=== PATIENT | female | born 1965 | race Caucasian/White ===

== ENCOUNTER 2018-10-20 06:52 | Day surgery (SDC) | payer OTHER ==
[2018-10-18 17:20] VITALS: Ht 167.6 cm; Wt 63.0 kg
[2018-10-20] VITALS (15 sets, daily range): BP systolic 98–166; BP diastolic 59–95; PULSE 64–90; RESP 11–31
[~2018-10-20] VITALS: Ht 167.6 cm; Wt 63.0 kg
--- NOTE | 2018-10-20 06:06 | HPN ---
Date/Time of Note Date/Time of Note DATE: 10/20/18 TIME: 06:06 Interval H&P Admission Note Pt. seen H&P reviewed: No system changes BERTHA EVANS MD Oct 20, 2018 06:06
--- NOTE | 2018-10-20 06:09 | OPR ---
Date/Time of Note Date/Time of Note DATE: 10/20/18 TIME: 06:06 Operative Report Procedure Date: Oct 20, 2018 Preoperative Diagnosis Right shoulder rotator cuff tear with impingement Postoperative Diagnosis 1. Right shoulder rotator cuff tear 2. Right shoulder acromioclavicular joint arthritis 3. Right shoulder impingement 4. Right shoulder labral tear with biceps tendon tear Operation/Procedure Performed 1. Right shoulder arthroscopic rotator cuff repair 2. Right shoulder arthroscopic distal clavicular excision 3. Right shoulder arthroscopic acromioplasty 4. Right shoulder arthroscopic extensive debridement of glenohumeral joint with release of biceps tendon Surgeon see signature line Controlled Area Checker Desean Samaniego PA-C Anesthesia Type: general Estimated Blood Loss: minimal Transfusion none Specimen None Grafts/Implants See op note Complications none Pt Condition Post Procedure: stable Disposition: PACU Procedure Description BRUSH MACHINE SETTER SURGEON: Desean Samaniego PA-C was asked to be present at my request as a result of the complexity associated with this procedure including positioning of the extremities, manipulation of the arthroscope and assistance with suture management and implantation of suture anchors. In my opinion, the assistance offered by a assistant professor surgical technology is insufficient and Mr. Samaniego should be compensated for his time. PROCEDURE IN DETAIL: Following the administration of general anesthesia supplemented with a peripheral nerve block for postoperative pain control, the patient was examined under anesthesia. Examination of the right shoulder revealed very significant stiffness. Specifically, her forward flexion was 90 degrees, abduction 80 degrees external rotation 45 degrees and internal rotation 10 degrees. A passive manipulation was then undertaken very carefully. The ultimate range of motion was approximately 140 degrees of forward flexion 110 de grees of abduction 80 degrees and internal rotation of 20 degrees. See letter several significant adhesions were noted to be released. The patient was then placed in the left lateral decubitus position. Sterile prep and drape was then undertaken of the right shoulder. Anterior and posterior glenohumeral portals were established. Glenohumeral arthroscopy revealed that the humeral and glenoid articular cartilage revealed some diffuse grade 2 changes and in the central portion of the humerus there was some mild grade 2 changes also in a diffuse fashion. There was some mild softening in a generalized fashion.. The superior labrum was diffusely torn with extensive fraying that extended from 9:00 to the 3 o'clock position. The biceps had severe synovitis with subluxation and significant fraying. In addition, the biceps anchor was detached completely. The subscapularis was visualized and it had a solid attachment. No abnormalities are noted anteriorly with the exception of the very severe synovitis which was actually in the notch itself. Further evaluation of the supraspinatus revealed complete tear of the supraspinatus measuring 1 x 2 cm. Some significant frayed tissue was also noted. Infraspinatus was normal. The superior labrum then debrided extensively from the 9:00 to the 3 o'clock position was undertaken down to stable tissue. Severe synovitis was also debrided down to stable tissue. The biceps tendon was also released and seen to retract. The severe synovitis in the anterior compartment was then debrided. The subacromial space was then entered and very severe bursal reactive tissue was noted. There was a thickened coracoacromial ligament, with a 5 to 7 mm acromial prominence noted, which extended medially as well into the acromioclavicular joint. The anterior acromion was then cleared of soft tissue and the coracoacromial ligament released. The acromion was then resected approximately 5 to 7 mm down to a flat surface. The outer surface of the rotator cuff was then inspected. The rotator cuff tear was noted to be complete and a debridement of this area was undertaken down to stable tissue in order to prepare for the repair. The subacromial space was then further evaluated medially. The acromioclavicular joint was then skeletonized and a significant inferior osteophyte was noted. The AC joint capsule was then opened and the distal clavicle was skeletonized for a distance of 10 mm. The marlon was then inserted and 10 mm of the distal clavicle were then excised. The rotator cuff repair was then undertaken. Specifically, a 5 mm, triple loaded titanium anchor was then inserted into the tuberosity. The sutures were then passed in a mattress fashion and tied using sliding, locking knots. A solid repair of the rotator cuff was completed. The joint was then thoroughly irrigated bony debris removed, the deep tissues were approximated using 4-0 Monocryl, followed by a sterile dressing. A sling was then applied. The patient was awakened and transported to the recovery room in stable condition. BERTHA EVANS MD Oct 20, 2018 06:08
[~2018-10-20 06:52] MED LIST: CEFAZOLIN 2 GM/50 ML (PMX) 50 ML IVPB ONE; DEXAMETHASONE 1 MG TAB PO ONE; GABAPENTIN 300 MG CAP PO ONE; TRANEXAMIC ACID 1GM/100ML(PMX) 100 ML IVPB ONE
[2018-10-20] MEDS ORDERED: LEVO25TA50 PO (09:06)
[2018-10-20] MEDS ORDERED: GABAPENTIN 300 MG CAP ONE ×2 (09:18→09:23)
[2018-10-20] MEDS ORDERED: DEXAMETHASONE 2 MG TAB ONE (09:19)
[2018-10-20] MEDS ORDERED: DEXAMETHASONE 1 MG TAB ONE (09:22)
[2018-10-20] MEDS ORDERED: PROPOFOL 20 ML ONE (11:34)
[2018-10-20] MEDS ORDERED: FENTAnyl 50 MCG/ML VIAL ONE (11:34)
[2018-10-20] MEDS ORDERED: MIDAZOLAM 1 MG/ML 2 ML INJ ONE (11:34)
[2018-10-20] MEDS ORDERED: ROPIVACAINE 0.5 % 30 ML VIAL ONE (11:34)
[2018-10-20] MEDS ORDERED: ROCURONIUM 50 MG INJ ONE (11:34)
[2018-10-20] MEDS ORDERED: CEFAZOLIN 1 GM INJ ONE (11:36)
[2018-10-20] MEDS ORDERED: EPINEPHrine 1 MG/ML 30 ML INJ ONE (13:21)
--- NOTE | 2018-10-20 13:36 | PREAC ---
Date/Time of Note Date/Time of Note DATE: 10/20/18 TIME: 13:34 Anesthesia Eval and Record Evaluation Time Pre-Procedure Interview DATE: 10/20/18 TIME: 12:10 Age 53 Sex female NPO: 8 hrs Preoperative diagnosis Right Rotator Cuff Tear Planned procedure Right Shoulder Arthroscopy and RCR with Acromioplasty Past Medical History Past Medical History: None Surgery & Anesthesia Issues No known issue Meds Anticoagulation: No Beta Mike within 24 hr: No Reason Beta Mike not given: Pt. not on B-Mike Reported Medications Levothyroxine Sodium* (Levoxyl*) 25 Mcg Tablet, 25 MCG PO BEFORE BREAKFAST, #30 TAB 10/20/18 Meds reviewed: Yes Allergies Coded Allergies: No Known Allergy (Unverified , 10/20/18) Allergies Reviewed: Yes Labs/Studies Labs Reviewed: Reviewed by anesthesiologist test: Negative Studies: ECG (n/a), CXR (n/a) Pre-procedure Exam Last vitals Vital Signs Date Temp Pulse Resp B/P (MAP) Pulse Ox O2 O2 Flow FiO2 Time Delivery Rate 10/20/18 97.9 64 16 166/95 99 Room Air 09:52 (118) Airway: Adequate mouth opening, Adequate thyromental dist Mallampati: Mallampati II Teeth: Normal Lung: Normal Heart: Normal ASA Physical Status ASA physical status: 2 Emergency: None Planned Anesthetic General/MAC: ETT Nerve block: Brachial plexus (right) Planned Pain Management Single shot nerve block, Parenteral pain med Pre-operative Attestations Prior to commencing anesthesia and surgery, the patient was re-evaluated, there was verification of: *The patient's identity *The results of appropriate recent lab work and preoperative vital signs *The above evaluation not changing prior to induction *Anesthetic plan, risk benefits, alternative and complications discussed with patient/family; questions answered; patient/family understands, accepts and wishes to proceed. DANIEL BRUSH MD Oct 20, 2018 13:36
[2018-10-20] MEDS ORDERED: METOCLOPRAMIDE 10 MG INJ ONE (13:47)
[2018-10-20] MEDS ORDERED: DEXAMETHASONE 4 MG/ML 5 ML INJ ONE (13:47)
[2018-10-20] MEDS ORDERED: KETOROLAC 30 MG INJ ONE (13:47)
[2018-10-20] MEDS ORDERED: ONDANSETRON 4 MG INJ ONE (13:47)
[2018-10-20] MEDS ORDERED: SUGAMMADEX SODIUM 200 MG/2 ML VIAL IV ONE (14:06)
--- NOTE | 2018-10-20 14:14 | PDOCDIS ---
Discharge Instructions DIAGNOSIS Discharge Diagnosis Rotator cuff tear CONDITION [id number] Patient Condition: [id number] Good HOME CARE INSTRUCTIONS: [id number] Diet Instructions: [id number] Regular ACTIVITY: [id number] Activity Restrictions: [id number] Slowly Increase Activity Keep Limb Elevated [id number] Bathing Restrictions: [id number] Shower FOLLOW UP/APPOINTMENTS Follow-up Plan 2 weeks in the office SCHOOL/WORK RELEASE May return to School/Work with: With Restrictions School/Work Release Comment: 5 pound tabletop usage for 6 weeks BERTHA EVANS MD Oct 20, 2018 14:14
--- NOTE | 2018-10-20 14:59 | PAC ---
Date/Time of Note Date/Time of Note DATE: 10/20/18 TIME: 14:58 Post-Anesthesia Notes Post-Anesthesia Note Last documented vital signs Vital Signs Date Temp Pulse Resp B/P (MAP) Pulse Ox O2 O2 Flow FiO2 Time Delivery Rate 10/20/18 98.0 64 16 166/95 99 Room Air 15:00 (118) Activity: WNL Respiratory function: WNL Cardiovascular function: WNL Mental status: Baseline Pain reasonably controlled: Yes Hydration appropriate: Yes Nausea/Vomiting absent: Yes DANIEL BRUSH MD Oct 20, 2018 14:59
[2018-10-20] MEDS ORDERED: EPHEDrine 25 MG/5 ML SYG IV PRN (15:00)
[2018-10-20] MEDS ORDERED: HYDROmorphONE 1 MG/5 ML IV SYRINGE IV PRN ×2 (15:00)
[2018-10-20] MEDS ORDERED: hydrALAzine 20 MG INJ IV PRN (15:00)
[2018-10-20] MEDS ORDERED: METOCLOPRAMIDE 10 MG INJ IV PRN (15:00)
[2018-10-20] MEDS ORDERED: ONDANSETRON 4 MG INJ IV PRN (15:00)
[2018-10-20] MEDS ORDERED: LACTATED RINGER'S 1,000 ML IV SCH (15:00)
[2018-10-20] MEDS ORDERED: FENTAnyl 50 MCG/ML VIAL IV PRN ×2 (15:00)
[2018-10-20] MEDS ORDERED: OXYCODONE/ACETAMINOPHEN (5/325) TAB PO PRN (15:00)
[2018-10-20] MEDS ORDERED: LABETALOL HCL 20MG INJ IV PRN (15:00)
== END 2018-10-20 17:05 | disposition home or self-care (01) ==
LOC: SDS 06:52
PROVIDERS: ATTEND Orthopaedic Surgery
DX: M25.811 Other specified joint disorders, right shoulder (principal); M75.101 Unspecified rotator cuff tear or rupture of right shoulder, not specified as traumatic
CPT/HCPCS: 23405; 29824; 29826; 29827; J0171; J0690; J1100; J1885; J2250; J2405; J2765; J2795; J3010